=== PATIENT | female | born 1990 | race Caucasian/White ===

== ENCOUNTER → 2019-11-19 11:16 | Outpatient (BNVA) | payer BC, SELFPAY | PROVIDERS: Family Provider Registered Nurse; PCP Registered Nurse; Visit Provider Registered Nurse | DX: R31.0 Gross hematuria (principal) | CPT/HCPCS: 80053; 81003 ==

== ENCOUNTER → 2019-11-26 16:00 | Outpatient (BNVA) | payer BC, SELFPAY | PROVIDERS: Family Provider Registered Nurse; PCP Registered Nurse; Visit Provider Registered Nurse | DX: R31.0 Gross hematuria (principal) | CPT/HCPCS: 81001; 88112 ==

== ENCOUNTER 2019-12-06 12:41 | Outpatient (CLI) | payer BC, SELFPAY ==
[2019-12-06] MEDS: iohexol 300 mg/mL 100 mL Btl IV ×2 (13:17→13:18)
--- NOTE | 2019-12-06 14:30 | CT_ITS ---
WS: [id number] CT ABDOMEN PELVIS TECHNIQUE: Noncontrast CT of the abdomen and contrast-enhanced CT of the abdomen and pelvis with janell nal and sagittal reformatted images. CLINICAL INFORMATION: hematuria COMPARISON: None. DLP: 2218.[address] scans at [facility] use at least one of these dose optimization techniques: automat ed exposure control; mA and/or kV adjustment per patient size (includes targeted exams where dose is matched to clinical indication); or iterative reconstruction. FINDINGS: Liver is normal. Normal portal vein and splenic vein. Normal spleen. Normal GE junction. Lung bases a re well aerated. Adrenal glands are normal. Normal renal parenchymal enhancement. No hydronephrosis. Normal pancreas. Normal caliber abdominal aorta. Peripheral enhancing right ovarian cyst measuring 13 mm. Small amount of surrounding fluid. Normal cortical medullary enhancement. Normal excretion on the delayed images. No obstructing renal o r ureteral calculi. Prior postoperative changes involving the sigmoid colon. No evidence of small or large bowel obstruct ion. CT/CT abdomen pelvis wo/w [id number] IMPRESSION: 1. No obstructing renal or ureteral calculi. 2. Normal excretion on the delayed images. Ureters appear normal. 3. Peripheral enhancing right ovarian cyst measuring 13 mm with a small amount surrounding fluid. This can be followed up with ultrasound. 4. Prior postoperative changes involving the sigmoid colon. No evidence of sma ll or large bowel obstruction. 5. No other acute abdominal or pelvic findings.
== END 2019-12-06 12:42 | disposition home or self-care (01) ==
LOC: RADWPI 12:45
PROVIDERS: Family Provider Registered Nurse; PCP Registered Nurse; Visit Provider Registered Nurse
DX: R31.9 Hematuria, unspecified (principal); N83.201 Unspecified ovarian cyst, right side
CPT/HCPCS: 74178; Q9967

== ENCOUNTER → 2019-12-07 12:03 | Outpatient (BNVA) | payer BC, SELFPAY | PROVIDERS: Family Provider Registered Nurse; PCP Registered Nurse; Referring Provider Registered Nurse; Visit Provider Urology | DX: R31.0 Gross hematuria (principal) | CPT/HCPCS: 80053; 81001; 85025 ==

== ENCOUNTER → 2019-12-10 08:45 | Outpatient (BNVA) | payer BC, SELFPAY | PROVIDERS: Family Provider Registered Nurse; PCP Registered Nurse; Visit Provider Urology | DX: R31.0 Gross hematuria (principal) | CPT/HCPCS: 82570; 84156 ==